=== PATIENT | female | born 1980 | race Caucasian/White ===

== ENCOUNTER 2017-01-07 17:40 | Emergency (ER) | payer SELFPAY ==
[~2017-01-07] VITALS: Ht 162.6 cm; Wt 85.7 kg
[2017-01-07 18:44] LABS: BILIRUBIN,URINE NEGATIVE (NEG); GLUCOSE,URINE NEGATIVE (NEG); NITRITE,URINE NEGATIVE (NEG); PROTEIN,URINE NEGATIVE (NEG-TRACE)
[2017-01-07 18:47] LABS: BASO # 0.1 x10^3/uL (0.0-0.2); BASO % 1 % (0-3); EOS % 3 % (0-3); HEMATOCRIT 39.4 % (36.0-47.0); HEMOGLOBIN 13.3 g/dL (12.0-15.5); LYMPH # 2.2 x10^3/uL (1.0-4.8); LYMPH % 29 % (24-48); MEAN CORPUSCULAR HEMOGLOBIN 30 pg (25-35); MEAN CORPUSCULAR HGB CONC 34 g/dL (31-37); MEAN CORPUSCULAR VOLUME 88 fL (79-100); MONO % 12 % (0-9); NEUT % 55 % (31-73); PLATELET COUNT 277 x10^3/uL (140-400); RED BLOOD COUNT 4.48 x10^6/uL (3.50-5.40); RED CELL DISTRIBUTION WIDTH 13.8 % (11.5-14.5); WHITE BLOOD COUNT 7.5 x10^3/uL (4.0-11.0)
[2017-01-07 18:49] LABS: BACTERIA,URINE MANY /HPF (0-FEW); SQUAMOUS EPITHELIAL CELL,UR MANY /LPF
[2017-01-07 18:58] LABS: BARBITURATES NEG (NEG); BENZODIAZEPINES POS (NEG); CANNABINOIDS NEG (NEG); COCAINE NEG (NEG); METHADONE NEG (NEG); OPIATES NEG (NEG); PHENCYCLIDINE NEG (NEG)
[2017-01-07 18:59] LABS: ETHANOL, URINE NEG (NEG)
[2017-01-07 19:00] LABS: ANION GAP 7 (6-14); BLOOD UREA NITROGEN 14 mg/dL (7-20); CALCIUM 9.4 mg/dL (8.5-10.1); CARBON DIOXIDE 28 mmol/L (21-32); CHLORIDE 106 mmol/L (98-107); CREATININE 0.8 mg/dL (0.6-1.0); GFR 81.2; GLUCOSE 115 mg/dL (70-99); POTASSIUM 3.6 mmol/L (3.5-5.1); SODIUM 141 mmol/L (136-145)
[2017-01-07 19:05] LABS: ALK PHOS 92 U/L (46-116); ALT (SGPT) 24 U/L (14-59); AST (SGOT) 16 U/L (15-37); DIRECT BILIRUBIN < 0.1 mg/dL (0.0-0.2); MAGNESIUM 2.1 mg/dL (1.8-2.4); TOTAL BILIRUBIN 0.3 mg/dL (0.2-1.0); TOTAL PROTEIN 8.6 g/dL (6.4-8.2)
[2017-01-07 19:12] LABS: CKMB INDEX 0.8 % (0-4); CKMB MASS 1.4 ng/mL (0.0-3.6)
[2017-01-07] MEDS ORDERED: ASPIRIN CHEWABLE 81 MG TABLET. PO ONE (19:15)
[2017-01-07] MEDS ORDERED: LORAZEPAM 2 MG/ML VIAL. IV ONE (19:15)
[2017-01-07] MEDS ORDERED: IV NORMAL SALINE 1000ML BAG 1,000 ML IV SCH (19:15)
--- NOTE | 2017-01-07 19:57 | PHYS DOC ---
Past Medical History Past Medical History: Anxiety Past Surgical History: Tubal ligation Alcohol Use: None Drug Use: None Adult General Chief Complaint Chief Complaint: ANXIETY/PANIC ATTACK HPI HPI Patient is a 36 year old female who presents with complaint of chest pain and palpitations. The patient states that she started having symptoms at approximately 1400 this afternoon. Patient states that she was at work upon onset of symptoms. Patient states that she has history of anxiety and panic attacks and stated that her symptoms felt similar upon onset. Patient states however that her symptoms have lasted longer than they usually do. The patient states that she takes clonazepam and took 1 upon onset of symptoms. Patient states that usually this helps relieve her symptoms after about an hour, however the patient's symptoms have persisted for the past 4 hours. Patient states that they are improved at this time but still present. Patient denies any significant cardiac history and is not on any other medications at this time. Patient has not had any associated shortness of breath, diaphoresis, or vomiting. Patient states that she did develop tingling in her hands and feet with her symptoms. Review of Systems Review of Systems Constitutional: Denies fever or chills [] Eyes: Denies change in visual acuity, redness, or eye pain [] HENT: Denies nasal congestion or sore throat [] Respiratory: Denies cough or shortness of breath [] Cardiovascular: Chest pain [] GI: Denies abdominal pain, nausea, vomiting, bloody stools or diarrhea [] : Denies dysuria or hematuria [] Musculoskeletal: Denies back pain or joint pain [] Integument: Denies rash or skin lesions [] Neurologic: Numbness and tingling in hands and feet, denies headache or focal weakness [] Current Medications Current Medications Current Medications Medications (Trade) Dose Ordered Sig/Chanell Start Time Stop Time Status Last Admin Dose Admin Aspirin (Children'S Aspirin) 324 mg 1X ONCE 01/07/17 19:15 01/07/17 19:16 DC 01/07/17 19:09 324 MG Lorazepam 1 mg 1 mg 1X ONCE 01/07/17 19:15 01/07/17 19:16 DC 01/07/17 19:11 1 MG Sodium Chloride (Iv Sodium Chloride 0.9% 1000ml Bag) 1,000 ml @ 1,000 mls/hr Q1H 01/07/17 19:15 01/07/17 20:14 DC 01/07/17 19:09 1,000 MLS/HR Allergies Allergies Allergies Coded Allergies Type Severity Reaction Last Updated Verified No Known Drug Allergies 01/07/17 No Physical Exam Physical Exam Constitutional: Alert, afebrile, appears mildly anxious. [] HENT: Normocephalic, atraumatic, bilateral external ears normal, oropharynx moist, no oral exudates, nose normal. [] Eyes: PERRLA, EOMI, conjunctiva normal, no discharge. [] Neck: Normal range of motion, no tenderness, supple, no stridor. [] Cardiovascular:Heart rate regular rhythm, no murmur [] Lungs & Thorax: Bilateral breath sounds clear to auscultation [] Abdomen: Bowel sounds normal, soft, no tenderness, no masses, no pulsatile masses. [] Skin: Warm, dry, no erythema, no rash. [] Back: No tenderness, no CVA tenderness. [] Extremities: No tenderness, no cyanosis, no clubbing, ROM intact, no edema. [] Neurologic: Alert and oriented X 3, normal motor function, normal sensory function, no focal deficits noted. [] Current Patient Data Vital Signs Vital Signs Date Time Temp Pulse Resp B/P Pulse Ox O2 Delivery O2 Flow Rate FiO2 01/07/17 20:00 80 23 125/60 96 Room Air 01/07/17 18:09 98.4 98.4 Lab Values Laboratory Tests Test 01/07/17 17:40 01/07/17 18:22 01/07/17 18:40 POC Urine HCG, Qualitative Hcg negative (Negative) Urine Collection Type Unknown Urine Color Yellow Urine Clarity Clear Urine pH 6.0 Urine Specific [place] 1.025 Urine Protein Negativemg/dL (NEG-TRACE) Urine Glucose (UA) Negativemg/dL (NEG) Urine Ketones (Stick) Negativemg/dL (NEG) Urine Blood Negative (NEG) Urine Nitrite Negative (NEG) Urine Bilirubin Negative (NEG) Urine Urobilinogen Dipstick 1.0mg/dL (0.2 mg/dL) Urine Leukocyte Esterase Small (NEG) Urine RBC 3-5/HPF (0-2) Urine WBC 5-10/HPF (0-4) Urine Squamous Epithelial Cells Many/LPF Urine Bacteria Many/HPF (0-FEW) Urine Mucus Marked/LPF Urine Opiates Screen Neg (NEG) Urine Methadone Screen Neg (NEG) Urine Barbiturates Neg (NEG) Urine Phencyclidine Screen Neg (NEG) Urine Amphetamine/Methamphetamine Neg (NEG) Urine Benzodiazepines Screen Pos (NEG) Urine Cocaine Screen Neg (NEG) Urine Cannabinoids Screen Neg (NEG) Urine Ethyl Alcohol Neg (NEG) White Blood Count 7.5x10^3/uL (4.0-11.0) Red Blood Count 4.48x10^6/uL (3.50-5.40) Hemoglobin 13.3g/dL (12.0-15.5) Hematocrit 39.4% (36.0-47.0) Mean Corpuscular Volume 88fL (79-100) Mean Corpuscular Hemoglobin 30pg (25-35) Mean Corpuscular Hemoglobin Concent 34g/dL (31-37) Red Cell Distribution Width 13.8% (11.5-14.5) Platelet Count 277x10^3/uL (140-400) Neutrophils (%) (Auto) 55% (31-73) Lymphocytes (%) (Auto) 29% (24-48) Monocytes (%) (Auto) 12% (0-9) H Eosinophils (%) (Auto) 3% (0-3) Basophils (%) (Auto) 1% (0-3) Neutrophils # (Auto) 4.1x10^3uL (1.8-7.7) Lymphocytes # (Auto) 2.2x10^3/uL (1.0-4.8) Monocytes # (Auto) 0.9x10^3/uL (0.0-1.1) Eosinophils # (Auto) 0.2x10^3/uL (0.0-0.7) Basophils # (Auto) 0.1x10^3/uL (0.0-0.2) D-Dimer (Yany) 0.29ug/mlFEU (0.00-0.50) Sodium Level 141mmol/L (136-145) Potassium Level 3.6mmol/L (3.5-5.1) Chloride Level 106mmol/L (98-107) Carbon Dioxide Level 28mmol/L (21-32) Anion Gap 7 (6-14) Blood Urea Nitrogen 14mg/dL (7-20) Creatinine 0.8mg/dL (0.6-1.0) Estimated GFR (Cockcroft-Gault) 81.2 Glucose Level 115mg/dL (70-99) H Calcium Level 9.4mg/dL (8.5-10.1) Magnesium Level 2.1mg/dL (1.8-2.4) Total Bilirubin 0.3mg/dL (0.2-1.0) Direct Bilirubin < 0.1mg/dL (0.0-0.2) Aspartate Amino Transferase (AST) 16U/L (15-37) Alanine Aminotransferase (ALT) 24U/L (14-59) Alkaline Phosphatase 92U/L (46-116) Creatine Kinase 171U/L (26-192) Creatine Kinase MB (Mass) 1.4ng/mL (0.0-3.6) Creatine Kinase MB Relative Index 0.8% (0-4) Troponin I Quantitative < 0.017ng/mL (0.000-0.055) Total Protein 8.6g/dL (6.4-8.2) H Albumin 4.0g/dL (3.4-5.0) Laboratory Tests 01/07/17 18:40 Laboratory Tests 01/07/17 18:40 EKG EKG Interpreted by me: Heart rate 87, sinus rhythm, leftward axis, normal intervals , no acute ST/T-wave abnormalities present [] Radiology/Procedures Radiology/Procedures Two-view chest x-ray interpreted by me: No acute infiltrates or effusions, normal cardiac silhouette [] Course & Med Decision Making Course & Med Decision Making Pertinent Labs and Imaging studies reviewed. (See chart for details) Patient was given aspirin and IV Ativan in the emergency department. Patient was monitored with no remarkable cardiac events recorded. Patient's lab work and x-ray imaging unremarkable. Patient's symptoms appear consistent with anxiety as patient is likely having an atypical presentation for panic attack. Recommended follow-up in 3-5 days with patient's primary doctor and return to emergency department for any worsening symptoms. Patient voiced understanding and in agreement with treatment plan. Dragon Disclaimer Dragon Disclaimer This electronic medical record was generated, in whole or in part, using a voice recognition dictation system. Departure Departure Impression: Primary Impression: Anxiety Disposition: 01 HOME, SELF-CARE Condition: IMPROVED Referrals: LAWSON HUANG MD (PCP) Patient Instructions: Anxiety and Panic Attacks Additional Instructions: Follow-up with your primary doctor in the next 3-5 days. Return to the emergency department for any worsening symptoms. CHARISSA ADAM MD Jan 07, 2017 19:57
[2017-01-07 20:00] VITALS: BP 125/60
--- NOTE | 2017-01-08 06:13 | EKG ---
[facility] [address] [place] [address] Test Date: 2017-01-07 Test Time: 17:56:12 Pat Name: ZAKI FRANKLIN Department: Room: Gender: F Track Man: : 1980 Requested By: CHARISSA ADAM Order Number: [id number] Reading MD: Measurements Intervals [place] Rate: 87 P: 26 FL: 180 QRS: -5 QRSD: 100 T: 24 QT: 384 QTc: 468 Interpretive Statements SINUS RHYTHM LEFTWARD AXIS QRS(T) CONTOUR ABNORMALITY CONSIDER ANTEROLATERAL MYOCARDIAL DAMAGE POSSIBLY ABNORMAL ECG RI6.01 No previous ECG available for comparison
--- NOTE | 2017-01-08 07:50 | RAD ---
Exam: PA and lateral chest radiograph History: Left-sided chest pain. Comparison: None. Findings: Cardiomediastinal silhouette is within normal limits for size. Bilateral lung miller are free of focal infiltrate. No pleural effusion is seen. Impression: No acute cardiopulmonary process.
== END 2017-01-07 20:24 | disposition home or self-care (01) ==
LOC: ER 17:40
DX: F41.9 Anxiety disorder, unspecified (principal); Z98.51 Tubal ligation status
CPT/HCPCS: 36415; 71020; 80048; 80076; 81001; 81025; 82553; 83735; 84484; 85027; 85379; 87086; 93005; 96361; 96374; 99285; J2060; J7030; G0481

== ENCOUNTER → 2018-10-19 | Outpatient (CLI) | payer OTHER ==
--- NOTE | 2018-10-19 09:27 | RAD ---
AP pelvis, single view left hip 10/19/2018 INDICATION: Left hip pain x1 year COMPARISON STUDY: None FINDINGS: No fracture or dislocation is identified. Articular surfaces are uninterrupted. No significant joint space narrowing is identified given standing technique. No acute soft tissue changes are seen. IMPRESSION: No radiographic evidence of acute osseous abnormality Electronically signed by: Kaden Lino MD (10/19/2018 9:23 AM) [id number]
== END | disposition home or self-care (01) ==
LOC: RAD 08:34
PROVIDERS: ATTEND Nurse Practitioner Gerontology
DX: M25.552 Pain in left hip (principal)
CPT/HCPCS: 73501

== ENCOUNTER → 2018-10-28 | Outpatient (CLI) | payer OTHER ==
[~2018-10-28] MED LIST: BUPIVACAINE MPF 0.5% 10 ML VIAL for KCIC. IM ONE; IOHEXOL 300 MG/ML 50 ML VIAL. INT ART ONE; LIDOCAINE 1% Multi-Dose 20 ML VIAL. IM ONE; methylPREDNISolone ACETATE 40 MG/ML VIAL. INT ART ONE
--- NOTE | 2018-10-28 16:54 | KCIC ---
PROCEDURE Therapeutic left hip injection using fluoroscopic guidance. HISTORY Hip pain. TECHNIQUE The procedure was explained to the patient as were potential risks, including infection, bleeding or allergic reaction. All questions were answered. Informed written and verbal consent was obtained. The hip was prepped and draped in the usual sterile manner. Following administration of local anesthetic, a 22-gauge spinal needle was advanced into the hip joint without difficulty, with care taken to avoid the vascular structures. Stylet was removed and following negative aspiration, a mixture of 4 cc Omnipaque-300, 2 cc (80 mg) Depo-Medrol, 4 cc bupivacaine and 4 cc 1% lidocaine were injected without difficulty. Fluoroscopy demonstrates uniform and satisfactory distribution of the injection through the hip. The needle was removed. There was good hemostasis at the injection site. The patient left in stable condition without immediate complication. A single spot image was obtained. FLUOROSCOPY TIME: 16 seconds Electronically signed by: Rey Gonzalez MD (10/28/2018 4:50 PM) [email or web address]
== END | disposition home or self-care (01) ==
LOC: KCIC 12:55
PROVIDERS: ATTEND Nurse Practitioner Gerontology
DX: M25.552 Pain in left hip (principal)
CPT/HCPCS: 20610; 77002; J1030; Q9967

== ENCOUNTER → 2018-12-13 | Outpatient (CLI) | payer OTHER ==
--- NOTE | 2018-12-13 08:47 | RAD ---
Lumbar spine, 2 views, 12/13/2018: HISTORY: Low back pain rating down the left leg The lumbar vertebral heights and intervertebral disc spaces are well-maintained. There are couple minimal marginal spurs. There are mild sclerotic changes involving the facet joints in the lower lumbar spine. No fracture or subluxation is evident. The paraspinous soft tissues are unremarkable. IMPRESSION: 1. Minimal degenerative change. 2. No acute bony abnormality is detected. Electronically signed by: Rajendra Pandya MD (12/13/2018 8:44 AM) [facility]
== END | disposition home or self-care (01) ==
LOC: RAD 07:34
PROVIDERS: ATTEND Nurse Practitioner Gerontology
DX: M54.16 Radiculopathy, lumbar region (principal); G95.89 Other specified diseases of spinal cord
CPT/HCPCS: 72100

== ENCOUNTER → 2018-12-19 | Outpatient (CLI) | payer OTHER ==
--- NOTE | 2018-12-19 18:27 | RAD ---
MRI of the lumbar spine without contrast 12/19/2018 CLINICAL HISTORY: Low back pain which radiates down the left leg for 2 months. TECHNIQUE: Unenhanced T1-weighted and T2-weighted sagittal and axial and inversion recovery sagittal images of the lumbar spine were obtained. FINDINGS: Comparison is made to radiographs of the lumbar spine dated 12/13/2018. Very mild S-shaped curvature of the thoracolumbar spine is seen. Degenerative signal changes and loss of height are seen involving the L5-S1 disc. Degenerative signal changes are seen within the marrow surrounding this disc. The conus medullaris is within normal limits in morphology, position, and signal characteristics. The L1-2, L2-3 and L3-4 disc spaces are within normal limits. At the L4-5 disc space there is a mild to moderate generalized disc bulge. This is eccentric to the right. Degenerative changes are seen involving the facet joints bilaterally. There is moderate ligamentum flavum hypertrophy bilaterally. Small facet joint effusions are seen bilaterally. There is prominence of the posterior epidural fat. These findings when combined result in mild to moderate right greater than left central spinal canal stenosis. No neural foraminal stenosis is seen. At the L5-S1 disc space there is a mild generalized disc bulge. Superimposed on this disc bulge is a focal central disc protrusion. This measures 2.5 mm in AP diameter. Degenerative changes are seen involving the facet joints bilaterally. There is moderate ligamentum flavum hypertrophy bilaterally. These findings when combined result in mild to moderate central spinal canal stenosis. No neural foraminal stenosis is seen. IMPRESSION: The changes of degenerative disc disease are seen involving the lumbar spine. These findings results in mild to moderate right greater than left central spinal canal stenosis at L4-5 and mild to moderate central spinal canal stenosis at L5-S1. No neural foraminal stenosis is seen. Electronically signed by: Josue Merida MD (12/19/2018 6:24 PM) [email or web address]
== END | disposition home or self-care (01) ==
LOC: MRI 15:03
PROVIDERS: ATTEND Nurse Practitioner Gerontology
DX: M51.16 Intervertebral disc disorders with radiculopathy, lumbar region (principal); M48.061 Spinal stenosis, lumbar region without neurogenic claudication; M48.07 Spinal stenosis, lumbosacral region; M25.48 Effusion, other site
CPT/HCPCS: 72148

== ENCOUNTER → 2021-05-07 | Outpatient (CLI) | payer BC ==
--- NOTE | 2021-05-07 14:26 | KCIC ---
EXAM: Chest, 2 views. HISTORY: Cough. COMPARISON: None. FINDINGS: 2 views of chest are obtained. There is no infiltrate, pleural effusion or pneumothorax. Th e heart is normal in size. IMPRESSION: No acute pulmonary finding. Electronically signed by: Andressa Barnett MD (05/07/2021 2:24 PM) [id number]
== END ==
LOC: KCIC 14:03
PROVIDERS: ATTEND Family Medicine
DX: R05 Cough (principal)
CPT/HCPCS: 71046